=== PATIENT | male | born 1990 | race Hispanic/Latino ===

== ENCOUNTER 2018-07-21 07:33 | Outpatient (CLI) | payer OTHER ==
--- NOTE | 2018-07-21 08:11 | RAD ---
THORACIC SPINE THREE VIEWS: HISTORY: Sharp mid back pain when the patient bends, for one year. COMPARISON: None. FINDINGS: Three views of the thoracic spine show normal height and alignment of the vertebral bodies and interv ertebral disks without fracture or subluxation. No degenerative changes are seen. IMPRESSION: Unremarkable examination. POS: [facility]
--- NOTE | 2018-07-21 09:22 | MRI ---
MRI THORACIC SPINE: Date: 07/21/18 Multiplanar, multisequential imaging of thoracic spine obtained without IV contrast. INDICATION: Thoracic back pain. FINDINGS: Thoracic vertebra maintain normal height and alignment. There is an inferior plate deformity consiste nt with Schmorl's node involving the T8 vertebra. There is surrounding edema present and this could r epresent an acute Schmorl's node. There is no evidence of disc bulge or disc protrusion. The thoracic cord is unremarkable. There is no evidence of central canal or foraminal stenosis. There is slight anterior wedging of the T12 vertebra, which appears to primarily involve the anterior superior corner of T12. There is a linear signal seen on T1 images which could indicate prior injury . The anterior superior corner of T1 exhibits high T1 and T2 signal, which would suggest subacute or chronic injury at this site. IMPRESSION: 1. There is an anterior end plate deformity consistent with a Schmorl's node involving the T8 verteb ra with surrounding edema, which could represent an acute Schmorl's node and may be a source of pain. 2. Slight anterior wedging of the T12 vertebra which may represent a subacute or chronic injury. POS: [facility]
== END 2018-07-21 07:34 | disposition home or self-care (01) ==
LOC: TBSIIMAG 07:33
PROVIDERS: ATTEND Neurological Surgery
DX: M54.6 Pain in thoracic spine (principal)
CPT/HCPCS: 72072; 72146